=== PATIENT | female | born 1995 | race Caucasian/White ===

== ENCOUNTER → 2016-07-15 | Outpatient (CLI) | payer OTHER ==
--- NOTE | 2016-07-15 14:13 | Diagnostic Imaging Report ---
PROCEDURE: CT abdomen and pelvis without contrast. TECHNIQUE: Multiple contiguous axial images were obtained through the abdomen and pelvis without the use of intravenous contrast. INDICATION: UTI. FINDINGS: The lung bases demonstrate no significant abnormality. The liver, the spleen, the pancreas, the gallbladder, and the adrenal glands appear unremarkable for an unenhanced exam. There is a 2 mm nonobstructive stone in the lower pole of the right kidney. There is no hydronephrosis. There is a 2 mm calcification close to the location of the distal right ureter near the UVJ. Although the exact course of the distal ureter is not well delineated on this exam, this calcification is favored to be a phlebolith. Correlate clinically. If definitive answer by CT scan is needed, then a followup CT scan of the pelvis with intravenous contrast performed 5 minutes after contrast administration can definitively show the distal ureter exact course. There is unremarkable appearance of the adnexa for an unenhanced CT and normal size of the uterus. There is no bowel obstruction. No significant free fluid or fluid collection in the abdomen or pelvis is seen. Beam hardening artifact from an umbilical ring is noted. The osseous structures appear grossly unremarkable. IMPRESSION: 1. A 2 mm nonobstructive stone in the lower pole of the right kidney. No hydronephrosis. 2. A 2 mm calcification is seen in the right side of the pelvis adjacent to the course of the distal right ureter, which is not well delineated on this exam. It is favored to be a phlebolith rather than a distal ureteric stone. Correlate clinically and, if needed, with CT scan of the pelvis with contrast. Dictated by: Dictated on workstation # [id number]
== END ==
LOC: RAD 13:20
PROVIDERS: ATTEND Urology
DX: N39.0 Urinary tract infection, site not specified (principal)
CPT/HCPCS: 74176

== ENCOUNTER → 2016-07-21 | Outpatient (CLI) | payer OTHER ==
--- NOTE | 2016-07-21 15:19 | Diagnostic Imaging Report ---
PROCEDURE: CT abdomen and pelvis with contrast. TECHNIQUE: Multiple contiguous axial images were obtained through the abdomen and pelvis after administration of intravenous contrast. INDICATION: Right ureteric stone. 80 mL of Omnipaque-350 is administered intravenously. COMPARISON: 07/15/2016 exam reviewed. FINDINGS: The visualized portions of the lung bases appear unremarkable. The visualized portions of the liver appear unremarkable. The gallbladder, the pancreas, the spleen, and the adrenals appear grossly unremarkable. There is no hydronephrosis. There is symmetric enhancement in the kidneys and symmetric excretion. There is a 6 mm simple-appearing cyst in the lower pole of the right kidney. There is a 2 mm nonobstructive stone in the lower pole of the right kidney seen. The previously seen 2 mm calcification in the right side of the pelvis which is outside the opacified ureter clearly delineated with contrast. The urinary bladder appears unremarkable. The uterus and adnexa appear grossly unremarkable. No significant free fluid or fluid collection in the abdomen or pelvis seen. The abdominal aorta is normal in caliber. No para-aortic significantly enlarged lymph node seen. The osseous structures appear grossly unremarkable. IMPRESSION: 1. Nonobstructive 2 mm stone in the lower pole of the right kidney seen. 3. The 2 mm calcification seen on the prior exam in the right side of the pelvis is a phlebolith. No ureteric or bladder stone evident. Dictated by: Dictated on workstation # [id number]
== END ==
LOC: RAD 14:25
PROVIDERS: ATTEND Urology
DX: N20.1 Calculus of ureter (principal)
CPT/HCPCS: 74177

== ENCOUNTER → 2021-02-03 | Outpatient (CLI) | payer BC ==
--- NOTE | 2021-02-03 15:45 | Diagnostic Imaging Report ---
INDICATION: survey. Size and dates. TECHNIQUE: Multiple real-time grayscale images were obtained over the gravid uterus. COMPARISON: None FINDINGS: There is a single live intrauterine of 21 weeks 1 day +/- 2 weeks. Cardiac activity and motion are seen. The four-chamber heart and spine are not optimally visualized due to current position otherwise no abnormality is seen. The placenta extends into the lower uterine segment but there is no previa. No adnexal abnormality is seen. Biometrical measurements are as follows: Biparietal 4.80 cm, age 20 weeks 4 days. Head circumference 19.36 cm, age 21 weeks 5 days. Abdominal circumference 16.36 cm, age 21 weeks 3 days. Femur length 3.39 cm, age 20 weeks 5 days. Sonographic estimate age: 21 weeks 1 days. Sonographic estimated date of delivery: 06/15/2021. Estimated Weight: 339 gm (+/- 58 gm). LMP percentile: 91%. heart rate: 135 beats per minute. number: 1 of 1. IMPRESSION: There is a single live intrauterine of 21 weeks 1 day +/- 2 weeks. Dictated by: Dictated on workstation # [id number]
== END ==
LOC: RAD 12:45
PROVIDERS: ATTEND Obstetrics & Gynecology
DX: Z34.02 Encounter for supervision of normal first pregnancy, second trimester (principal); Z3A.21 21 weeks gestation of pregnancy
CPT/HCPCS: 76805

== ENCOUNTER 2021-06-19 19:04 | Inpatient (IN) | payer BC, MEDICAID ==
[~2021-06-19] VITALS: Ht 162.6 cm; Wt 103.1 kg
[2021-06-19] MEDS ORDERED: MINERAL OIL CONCENTRATE 99.9% 15 ML UDC TOP PRN (19:30)
[2021-06-19] MEDS ORDERED: NS IV 1000 ML 1,000 ML IV SCH (19:45)
[2021-06-19] MEDS ORDERED: NS IV 1000 ML 1,000 ML ONE (19:47)
[2021-06-19 20:29] VITALS: BP 127/83
[2021-06-19 20:38] LABS: BASOPHILS % (AUTO) 0 % (0-10); EOSINOPHILS # (AUTO) 0.2 10^3/uL (0.0-0.3); EOSINOPHILS % (AUTO) 2 % (0-10); HEMATOCRIT 36 % (35-52); LYMPHOCYTES # (AUTO) 2.2 10^3/uL (1.0-4.0); LYMPHOCYTES % (AUTO) 24 % (12-44); MEAN CORPUSCULAR HEMOGLOBIN 30 pg (25-34); MEAN CORPUSCULAR HGB CONC 33 g/dL (32-36); MEAN CORPUSCULAR VOLUME 91 fL (80-99); MEAN PLATELET VOLUME 11.5 fL (9.0-12.2); MONOCYTES # (AUTO) 0.6 10^3/uL (0.0-1.0); MONOCYTES % (AUTO) 6 % (0-12); NEUTROPHILS # (AUTO) 6.1 10^3/uL (1.8-7.8); NEUTROPHILS % (AUTO) 67 % (42-75); PLATELET COUNT 239 10^3/uL (130-400); WHITE BLOOD COUNT 9.1 10^3/uL (4.3-11.0)
[2021-06-19] MEDS: D5 LR IV SOLUTION 1,000 ML IV SCH (21:14)
[2021-06-19] MEDS: CATHETER FLUSH 10 ML SYR IV SCH (22:12)
[2021-06-20] VITALS (55 sets, daily range): BP systolic 96–157; BP diastolic 57–91
[2021-06-20] MEDS: D5 LR IV SOLUTION 1,000 ML IV SCH ×2 (03:44→11:58)
[2021-06-20] MEDS: CATHETER FLUSH 10 ML SYR IV SCH (06:31)
[2021-06-20] MEDS ORDERED: OXYTOCIN PRE-MIX DRIP 500 ML IV ONE (08:07)
[2021-06-20] MEDS ORDERED: OXYTOCIN PRE-MIX DRIP 500 ML IV SCH ×2 (08:15→19:45)
[2021-06-20] MEDS ORDERED: HYDROmorphone 2 MG/ML VIAL (DILAUDID) IV NR (11:30)
[2021-06-20] MEDS ORDERED: fentaNYL 2 mcg/ml BUPIVA 0.125 100 ML ONE (12:52)
[2021-06-20] MEDS ORDERED: ONDANSETRON 4 MG/2 ML (SDV) Z0FRAN IV PRN (13:45)
[2021-06-20] MEDS ORDERED: EPIDURAL (fentaNYL 2 MCG/ML BUPIVA 0.125%)100 ML BAG EPI SCH (13:45)
[2021-06-20] MEDS ORDERED: NALOXONE 0.4 MG/ML 1 ML (NARCAN) VIAL IV PRN ×3 (13:45→19:45)
[2021-06-20] MEDS ORDERED: diphenhydrAMINE 50 MG/ML INJ (BENADRYL) IV PRN (13:45)
[2021-06-20] MEDS ORDERED: METOCLOPRAMIDE INJ 10 MG/2 ML (REGLAN) IV PRN (13:45)
[2021-06-20] MEDS ORDERED: LACTATED RINGERS 1,000 ML IV SCH (13:45)
[2021-06-20] MEDS ORDERED: LIDOCAINE/EPI 2% 1:200,00 (XYLOCAINE) 10 ML VIAL ONE (17:11)
--- NOTE | 2021-06-20 17:11 | History & Physical-OB ---
OB - Chief Complaint & HPI Date/Time Date of Admission: Date of Admission: Jun 19, 2021 at 19:04 Date seen by a Provider: Jun 20, 2021 Time Seen by a Provider: 08:15 Chief Complaint/History OB-Reason for Admission/Chief: Induction of Labor Hx : 1 Hx Para: 0 Expected Date of Delivery: Jun 22, 2021 Gestational Age in Weeks: 39 Gestational Age in Days: 5 Indication for induction: maternal discomfort Admission Nurse Assessment Rev: Yes History of Labs O pos Antibody neg RI RPR NR HBsAg NR HIV NR GC neg GBS neg Allergies and Home Medications Allergies Coded Allergies: sulfamethoxazole (Verified Allergy, Mild, 06/19/21) trimethoprim (Verified Allergy, Mild, 06/19/21) hydrocodone (Verified Allergy, Unknown, 06/20/21) lips swell Patient Home Medication List Home Medication List Reviewed: Yes OB - History Hx of Present Care: Yes Ultrasounds: Normal mid trimester US Obstetrical Complications: None Medical Complications: None Patient Past Medical History n/a Immunizations Influenza Vaccine Up-to-Date: Yes; Up-to-Date First/Initial COVID19 Vaccine: Feb 2021 Second COVID19 Vaccination: Mar 2021 OB - Admission Exam Physical Exam Vitals: Vital Signs 06/20/21 06/20/21 06/20/21 03:47 13:30 14:45 Temp 36.4 Pulse 72 Resp 18 B/P (MAP) 117/70 (86) Pulse Ox 98 O2 Delivery Room Air HEENT: NCAT Heart: Rhythm Normal Lungs: Clear Abdomen: Gravid Extremities: Normal Reflexes: Normal Cervical Dilatation: 1cm Effacement: 75% Station: -1 Membranes: Intact Heart Rate: 130's Accelerations: Accelerations Present Decelerations: No Decelerations Short Term Variability: Present Fdc Variability: Average (6-25) Contractions on Admission: 6-10 Minutes Apart Intensity: Mild Luevano Scoring Tool (Modified) Dilation (cm): 1-2cm (1) Effacement (%): 51-79% (2) Descent/Station: -1,0 (2) Cervix Consistency: Soft (2) Cervix Position: Anterior (2) Add 1 point for: Each previous vaginal delivery (1) Luevano Score: 8 Labs Laboratory Tests Test 06/19/21 19:30 Range/Units White Blood Count 9.1 4.3-11.0 10^3/uL Red Blood Count 4.00 3.80-5.11 10^6/uL Hemoglobin 12.0 11.5-16.0 g/dL Hematocrit 36 35-52 % Mean Corpuscular Volume 91 80-99 fL Mean Corpuscular Hemoglobin 30 25-34 pg Mean Corpuscular Hemoglobin Concent 33 32-36 g/dL Red Cell Distribution Width 13.4 10.0-14.5 % Platelet Count 239 130-400 10^3/uL Mean Platelet Volume 11.5 9.0-12.2 fL Immature Granulocyte % (Auto) 1 % Neutrophils (%) (Auto) 67 42-75 % Lymphocytes (%) (Auto) 24 12-44 % Monocytes (%) (Auto) 6 0-12 % Eosinophils (%) (Auto) 2 0-10 % Basophils (%) (Auto) 0 0-10 % Neutrophils # (Auto) 6.1 1.8-7.8 10^3/uL Lymphocytes # (Auto) 2.2 1.0-4.0 10^3/uL Monocytes # (Auto) 0.6 0.0-1.0 10^3/uL Eosinophils # (Auto) 0.2 0.0-0.3 10^3/uL Basophils # (Auto) 0.0 0.0-0.1 10^3/uL Immature Granulocyte # (Auto) 0.1 0.0-0.1 10^3/uL OB - Assessment/Plan/Diagnosis Assessment Assessment: induction of labor Admission Dx 25 yo @ 39.5 Elective IOL GBS neg Admission Status: Inpatient Order (span 2 midnights) Reason for Inpatient Admission: IOL at 39 weeks Plan Plan: Induction Induction Method: per Misoprostol Protocol ANDREI BENTLEY DO Jun 20, 2021 17:11
[2021-06-20] MEDS ORDERED: CITRIC ACID/SOB CIT (BICITRA) 30 ML UDC ONE (19:32)
[2021-06-20] MEDS ORDERED: FAMOTIDINE 20MG/2ML IV (PEPCID) ONE (19:33)
[2021-06-20] MEDS ORDERED: ceFAZolin 2 GM IV Premixed 50 ML ONE (19:36)
--- NOTE | 2021-06-20 19:38 | Progress Note ---
Standard Progress Note Progress Notes/Assess & Plan Date Seen by a Provider: Jun 20, 2021 Time Seen by a Provider: 19:35 Progress/Assessment & Plan Patient admitted last night for IOL. Misoprostol used for cervical ripening. She had AROM performed this morning, and Pitocin augmentation. She received an epidural and progressed to complete and 0 station. She was encouraged to push with no progression in station for 35 min. She was then placed in hand and knees for 45 min, then encouraged to push again at which point significant vulvar swelling was noted, and a large caput had developed. She was unable to progress skull past 0 station. Due to CPD I discussed with the patient proceeding with PLTCS. Risk reviewed, vs continued course of pushing. She agreed that PLTCS would be the better option. Consent was obtain and we now await OR crew to begin. ANDREI BENTLEY DO Jun 20, 2021 19:38
--- NOTE | 2021-06-20 19:41 | Discharge Inst-Women's Service ---
Discharge Inst-Women's Serv Depart Medication/Instructions New, Converted or Re-Newed RX: Transmitted to Pharmacy Final Diagnosis POD 1 PLTCS Problems Reviewed?: Yes Consults/Follow Up Additional Follow Up: Yes Orders/Referrals Dr. Luna in 7-10 days and in 6 weeks Activity Activity: Activity as Tolerated Driving Instructions: No Driving for 1 Week NO SMOKING: NO SMOKING Nothing Inside Vagina: No Douching, No [place], No Tampons Diet Discharge Diet: No Restrictions Symptoms to Report to : Bleeding Excessive, Pain Increased, Fever Over 101 Degrees F, Vaginal Bleeding Increase, Questions/Concerns For Any Problems or Questions: Contact Your Physician Skin/Wound Care Infection Signs and Symptoms: Increased Redness, Foul Odor of Wound, Increased Drainage, Skin Itchy or Has a Rash, Increased Swelling, Temperature Above 101 F Operative Area Clean and Dry: Keep Incision Clean/Dry Stitches/[place]/Dermabond: Dermabond, Care of Stitches Bathing Instructions: ANDREI Kendall DO Jun 20, 2021 19:41
[2021-06-20] MEDS ORDERED: METOCLOPRAMIDE INJ 10 MG/2 ML (REGLAN) IV ONE (19:45)
[2021-06-20] MEDS ORDERED: MEASLES,MUMPS,RUBELLA 1 EA INJ SC SCH (19:45)
[2021-06-20] MEDS ORDERED: TETANUS,DIPTH,PERTUSS P/F (BOOSTRIX) 0.5 ML VIAL IM SCH (19:45)
[2021-06-20] MEDS ORDERED: ONDANSETRON 4 MG/2 ML (SDV) Z0FRAN IVP PRN (19:45)
[2021-06-20] MEDS ORDERED: CATHETER FLUSH 10 ML SYR IV PRN (19:45)
[2021-06-20] MEDS ORDERED: CITRIC ACID/SOB CIT (BICITRA) 30 ML UDC PO ONE (19:45)
[2021-06-20] MEDS ORDERED: ceFAZolin 2 GM IV Premixed 50 ML IV ONE (19:45)
[2021-06-20] MEDS ORDERED: LACTATED RINGERS 1,000 ML IV PRN ×2 (19:45)
[2021-06-20] MEDS ORDERED: BUPIVACAINE 0.25% 30 ML (SENSORCAINE) VIAL ONE (19:49)
[2021-06-20] MEDS ORDERED: ONDANSETRON 4 MG/2 ML (SDV) Z0FRAN ONE (19:49)
[2021-06-20] MEDS ORDERED: fentaNYL INJ 100 MCG/2 ML AMP ONE (19:49)
[2021-06-20] MEDS ORDERED: LIDOCAINE PF 2% 5 ML (XYLOCAINE) VIAL ONE (20:35)
[2021-06-20] MEDS ORDERED: BUPIVACAINE 0.5% 30 ML (SENSORCAINE) VIAL ONE (20:35)
[2021-06-20] MEDS ORDERED: KETOROLAC 30 MG/ML VIAL ONE (20:35)
[2021-06-20] MEDS ORDERED: CATHETER FLUSH 10 ML SYR IV SCH (22:00)
[2021-06-20] MEDS: ACETAMINOPHEN 500 MG TAB (TYLENOL) PO SCH (22:18)
[2021-06-20] MEDS: DOCUSATE SODIUM 100 MG (COLACE) CAP PO SCH (22:18)
--- NOTE | 2021-06-21 00:44 | OPERATIVE REPORT ---
DATE OF SERVICE: PREOPERATIVE DIAGNOSES: 1. A 25-year-old G1, P0 at 39 weeks and 5 days gestation. 2. Cephalopelvic disproportion. POSTOPERATIVE DIAGNOSES: 1. A 25-year-old G1, P0 at 39 weeks and 5 days gestation. 2. Cephalopelvic disproportion. PROCEDURE: Primary low transverse section. SURGEON: Elfego Bentley DO ANESTHESIA: Epidural, which was bolused. ESTIMATED BLOOD LOSS: 500 mL. URINE OUTPUT: 100 mL, slightly blood-tinged at the end of procedure. FLUIDS: 1300 mL lactated Ringer's solution. FINDINGS: A live male weighing 9 pounds even with Apgars of 8 and 9. Grossly normal appearing uterus, bilateral fallopian tubes and ovaries. SPECIMEN SENT: None. INDICATIONS FOR PROCEDURE: This 25-year-old female is a patient who was admitted for induction of labor. Please see her preoperative note for complete details pertaining to her labor course and indications for . All the risks were reviewed with the patient in detail, consent was obtained, the patient was taken to the operating room. OPERATIVE REPORT IN DETAIL: Once in the operating room, epidural analgesia was bolused and found to be adequate. She was placed in supine position with leftward tilt, prepped and draped in normal sterile fashion where a timeout was performed and anesthesia was tested. I then make a Pfannenstiel skin incision with a knife and carried down to the underlying fascia using Bovie cautery. Fascial incision extended laterally using Bovie cautery. Superior aspect of fascial incision was then grasped with Carina clamps, tented up and dissected off the underlying rectus muscle. Inferior aspect of fascial incision was then grasped with Carina clamps, tented up and dissected off the underlying rectus muscles. Rectus muscles are then dissected down the midline using Arellano scissors, which exposed the peritoneum, which I entered bluntly and extended using blunt traction. The Meño ring retractor was then placed in the peritoneal incision, which offers excellent lateral sidewall retraction. I identified the lower uterine segment, which was found to be thinned out and make a low transverse incision to the vesicouterine peritoneum and bluntly dissected off the lower uterine segment, creating a bladder flap and then proceeded with my myotomy until membranes were visualized, at which point I thinned uterine incision laterally and superiorly using bandage scissors. Amniotomy was performed through the incision in the process of doing this. The infant was found in vertex presentation. With gentle fundal pressure, the 's head was elevated up the incision where the head was delivered. The nares and oropharynx are bulb suctioned. A nuchal cord was reduced x1. Anterior and posterior shoulders were delivered. was then brought out to the operative field where the cord was doubly clamped and cut and handed off to waiting nurses in attendance. Cord blood was collected, 3-vessel cord with intact placenta was delivered spontaneously thereafter. IV Pitocin is initiated to facilitate uterine contraction. Uterine fundus confirmed by manual massage. The uterus was then exteriorized and cleared of all endometrial clots and debris. I then proceeded with closing the uterine incision using 0 Vicryl suture in running locked fashion. Second layer of imbricating 0 Monocryl was placed. Excellent hemostasis was noted after doing this. I then placed the uterus back in the pelvis and copiously irrigated the pelvis using normal saline. Once again there was no active bleeding noted from any of my dissection planes. I placed Interceed antiadhesive over my low transverse incision. I then removed the Meño ring retractor and proceeded with closing the peritoneum using 3-0 Vicryl suture in running fashion. Rectus muscle reapproximated using 3-0 Vicryl suture in interrupted fashion. The fascia was reapproximated using 0 Vicryl suture in running fashion. Subcutaneous tissue was reapproximated using 3-0 plain interrupted subcutaneous stitch and skin reapproximated using 4-0 Monocryl in a running subcuticular. Dermabond was applied to incision and sterile dressing with adhesive white tape. The patient tolerated the procedure well and sent to recovery area in stable condition. Lap and sponge counts were correct at the end of the procedure. Instrument counts correct as well. Two grams of Ancef given preoperatively for infection prophylaxis. Job ID: [id number] DocumentID: [id number] Dictated Date: 06/20/2021 20:47:35 Mechanical Assembly Date: 06/21/2021 00:41:27 Dictated By: ELFEGO BENTLEY DO
[2021-06-21] MEDS: METOCLOPRAMIDE 10 MG (REGLAN) TAB PO SCH ×4 (02:02→19:05)
[2021-06-21] MEDS: KETOROLAC 30 MG/ML VIAL IV SCH ×4 (02:02→18:00)
[2021-06-21 04:15] VITALS: BP 119/63
[2021-06-21] MEDS: ACETAMINOPHEN 500 MG TAB (TYLENOL) PO SCH ×2 (04:15→19:05)
[2021-06-21 07:20] VITALS: BP 121/63
[2021-06-21 07:38] LABS: BASOPHILS % (AUTO) 0 % (0-10); EOSINOPHILS % (AUTO) 0 % (0-10); HEMATOCRIT 29 % (35-52); HEMOGLOBIN 9.6 g/dL (11.5-16.0); LYMPHOCYTES # (AUTO) 1.6 10^3/uL (1.0-4.0); LYMPHOCYTES % (AUTO) 9 % (12-44); MEAN CORPUSCULAR HEMOGLOBIN 30 pg (25-34); MEAN CORPUSCULAR HGB CONC 33 g/dL (32-36); MEAN CORPUSCULAR VOLUME 91 fL (80-99); MEAN PLATELET VOLUME 10.7 fL (9.0-12.2); MONOCYTES # (AUTO) 0.9 10^3/uL (0.0-1.0); MONOCYTES % (AUTO) 5 % (0-12); NEUTROPHILS # (AUTO) 14.6 10^3/uL (1.8-7.8); NEUTROPHILS % (AUTO) 84 % (42-75); PLATELET COUNT 174 10^3/uL (130-400); WHITE BLOOD COUNT 17.3 10^3/uL (4.3-11.0)
--- NOTE | 2021-06-21 07:51 | Postpartum Progress Note ---
Note Note Day # 1 Subjective: Patient is without complaints. Ambulating, voiding. Tolerating a regular diet without nausea or vomiting. Normal lochia. Pain is well controlled with oral pain medications. Objective: Physical Exam: General - Alert and oriented, no apparent distress Abdomen - Soft, appropriately tender to palpation, non-distended, fundus firm at umbilicus Extremities - no edema, negative Ross's bilaterally Incision- c/d/i Assessment: POD 1 PLTCS Acute blood loss anemia Plan: Routine care. Encourage breast feeding. Encourage ambulation. Ferrous sulfate supplementation. Plan for discharge tomorrow Vitals - Labs Vital Signs - I&O Vital Signs Date Time Temp Pulse Resp B/P (MAP) Pulse Ox O2 Delivery O2 Flow Rate FiO2 06/21/21 04:15 36.6 99 16 119/63 (81) 97 Room Air 06/20/21 23:40 36.0 91 16 137/71 (93) 99 Room Air 06/20/21 22:25 36.8 88 16 131/79 (96) 98 Room Air 06/20/21 21:35 Room Air 06/20/21 21:35 36.8 16 122/71 (88) 99 Room Air 06/20/21 21:20 36.7 16 129/80 (96) 98 Room Air 06/20/21 21:20 Room Air 06/20/21 21:05 Room Air 06/20/21 21:05 36.6 18 123/73 (90) 98 Room Air 06/20/21 20:50 36.5 20 96/57 (70) 98 Room Air 06/20/21 20:50 Room Air 06/20/21 19:45 106 18 139/74 (95) Room Air 06/20/21 19:30 36.8 106 18 125/69 (87) Room Air 06/20/21 19:15 123 18 130/83 (99) Room Air 06/20/21 19:00 123 18 129/71 (90) 06/20/21 18:45 117 18 145/70 (95) 06/20/21 18:30 37.3 06/20/21 17:45 106 18 157/70 (99) 06/20/21 17:15 100 18 139/90 (106) 06/20/21 17:00 106 18 141/85 (103) 06/20/21 16:45 107 18 136/80 (98) 06/20/21 16:30 84 18 132/82 (99) 06/20/21 16:15 81 18 135/86 (102) 06/20/21 16:00 97 18 118/73 (88) 06/20/21 15:45 89 18 126/79 (95) 06/20/21 15:30 77 18 126/78 (94) 06/20/21 15:15 94 18 119/74 (89) 06/20/21 15:00 36.3 91 18 118/72 (87) 06/20/21 14:45 72 18 117/70 (86) 98 06/20/21 14:30 97 18 115/70 (85) 98 06/20/21 14:15 94 18 105/67 (80) 100 06/20/21 14:10 100 18 101/59 (73) 100 06/20/21 14:00 93 18 118/63 (81) 100 06/20/21 13:55 95 18 131/69 (89) 100 06/20/21 13:45 91 18 133/68 (89) 100 06/20/21 13:42 88 18 126/65 (85) 99 06/20/21 13:40 92 18 123/66 (85) 06/20/21 13:37 84 17 125/67 (86) 99 06/20/21 13:30 36.4 74 18 146/91 (109) 100 06/20/21 13:15 73 18 145/90 (108) 100 06/20/21 13:00 80 18 145/85 (105) 99 06/20/21 12:45 67 18 131/83 (99) 100 06/20/21 12:30 66 18 136/83 (100) 06/20/21 12:15 70 18 129/80 (96) 06/20/21 12:00 70 18 123/71 (88) 06/20/21 11:45 68 18 141/76 (97) 06/20/21 11:30 100 18 141/91 (108) 06/20/21 11:15 70 18 117/64 (81) 06/20/21 11:00 75 18 135/91 (106) 06/20/21 10:45 75 18 135/91 (106) 06/20/21 10:30 67 18 129/86 (100) 06/20/21 10:00 76 18 135/87 (103) 06/20/21 09:45 75 18 134/82 (99) 06/20/21 09:30 71 18 134/85 (101) 06/20/21 09:15 103 18 131/83 (99) 06/20/21 09:00 76 18 134/91 (105) 06/20/21 08:45 82 18 126/90 (102) 06/20/21 08:30 81 18 121/84 (96) 06/20/21 08:22 36.6 79 18 134/84 (101) I & O 06/21/21 07:00 Intake Total 4550 ml Output Total 750 ml Balance 3800 ml Labs Laboratory Tests 06/21/21 07:25: White Blood Count 17.3H, Red Blood Count 3.16L, Hemoglobin 9.6L, Hematocrit 29L, Mean Corpuscular Volume 91, Mean Corpuscular Hemoglobin 30, Mean Corpuscular Hemoglobin Concent 33, Red Cell Distribution Width 13.5, Platelet Count 174, Mean Platelet Volume 10.7, Immature Granulocyte % (Auto) 1, Neutrophils (%) (Auto) 84H, Lymphocytes (%) (Auto) 9L, Monocytes (%) (Auto) 5, Eosinophils (%) (Auto) 0, Basophils (%) (Auto) 0, Neutrophils # (Auto) 14.6H, Lymphocytes # (Auto) 1.6, Monocytes # (Auto) 0.9, Eosinophils # (Auto) 0.0, Basophils # (Auto) 0.0, Immature Granulocyte # (Auto) 0.1 ANDREI BENTLEY DO Jun 21, 2021 07:51
[2021-06-21] MEDS ORDERED: OXC5T PO (08:04)
[2021-06-21] MEDS ORDERED: IBUP-844 PO (08:04)
[2021-06-21] MEDS ORDERED: ACET-93 PO (08:04)
[2021-06-21] MEDS ORDERED: DOCU100C37 PO (08:04)
[2021-06-21] MEDS: DOCUSATE SODIUM 100 MG (COLACE) CAP PO SCH ×2 (08:45→19:38)
[2021-06-21 13:15] VITALS: BP 126/76
[2021-06-21] MEDS ORDERED: IBUPROFEN 600 MG (MOTRIN) TAB PO ONE ×2 (13:15→19:35)
[2021-06-21] MEDS: IBUPROFEN 600 MG (MOTRIN) TAB PO SCH ×2 (13:17→19:39)
[2021-06-21 19:41] VITALS: BP 134/74
[2021-06-22] MEDS: IBUPROFEN 600 MG (MOTRIN) TAB PO SCH ×2 (01:20→07:45)
[2021-06-22] MEDS: METOCLOPRAMIDE 10 MG (REGLAN) TAB PO SCH ×2 (01:20→07:44)
[2021-06-22] MEDS: ACETAMINOPHEN 500 MG TAB (TYLENOL) PO SCH ×3 (01:21→07:45)
[2021-06-22 01:22] VITALS: BP 136/87
[2021-06-22 07:34] VITALS: BP 117/75
[2021-06-22] MEDS: DOCUSATE SODIUM 100 MG (COLACE) CAP PO SCH (07:45)
--- NOTE | 2021-06-22 09:11 | Postpartum Progress Note ---
Note Note Day # 2 Subjective: Patient is without complaints. Ambulating, voiding. Tolerating a regular diet without nausea or vomiting. Normal lochia. Pain is well controlled with oral pain medications. Objective: Physical Exam: General - Alert and oriented, no apparent distress Abdomen - Soft, appropriately tender to palpation, non-distended, fundus firm at umbilicus Extremities - no edema, negative Ross's bilaterally Incision c/d/i Assessment: POD 2 PLTCS Acute blood loss anemia Plan: Routine care. Encourage breast feeding. Encourage ambulation. Ferrous sulfate supplementation. Plan for discharge today Vitals - Labs Vital Signs - I&O Vital Signs Date Time Temp Pulse Resp B/P (MAP) Pulse Ox O2 Delivery O2 Flow Rate FiO2 06/22/21 07:34 36.4 86 16 117/75 (89) 96 06/22/21 01:22 36.3 93 18 136/87 (103) 98 Room Air 06/21/21 19:41 36.6 105 18 134/74 (94) 96 Room Air 06/21/21 13:15 36.3 89 18 126/76 (93) 96 Room Air ANDREI BENTLEY DO Jun 22, 2021 09:11
--- NOTE | 2021-06-22 11:00 | Anesthesia-Regional Post-Op ---
Regional Patient Condition Mental Status: Alert, Oriented x3 Circulation: Same as Pre-Op Headache: Absent Sensation: Full Recovery Motor Block: Absent Post Op Complications Complications None Follow Up Care/Instructions Patient Instructions None needed. Anesthesia/Patient Condition Patient is doing well, no complaints, stable vital signs, no apparent adverse anesthesia problems. No complications reported per nursing. AMRITA ADAN CRNA Jun 22, 2021 11:00
[2021-06-22 11:20] VITALS: BP 117/75
== END 2021-06-22 11:50 | disposition home or self-care (01) | DRG 787 ==
LOC: LDRP 19:04
PROVIDERS: ADMIT Obstetrics & Gynecology; ATTEND Obstetrics & Gynecology
PROC: 3E0DXGC Introduction of Other Therapeutic Substance into Mouth and Pharynx, External Approach (ICD-10-PCS; 2021-06-19)
PROC: 10D00Z1 Extraction of Products of Conception, Low, Open Approach (ICD-10-PCS; principal; 2021-06-20 19:59)
DX: O65.9 Obstructed labor due to maternal pelvic abnormality, unspecified (principal); D62 Acute posthemorrhagic anemia; O69.81X0 Labor and delivery complicated by cord around neck, without compression, not applicable or unspecified; O90.81 Anemia of the puerperium; Z37.0 Single live birth; Z3A.39 39 weeks gestation of pregnancy; Z88.1 Allergy status to other antibiotic agents; Z88.5 Allergy status to narcotic agent; Z88.2 Allergy status to sulfonamides
CPT/HCPCS: 36415; 85025; 86850; 86900; 86901

== ENCOUNTER → 2023-02-08 | Outpatient (CLI) | payer BC, MEDICAID ==
[~2023-02-08] MED LIST: ACET-93 PO; DOCU100C37 PO; IBUP-844 PO; OXC5T PO
--- NOTE | 2023-02-08 13:16 | Diagnostic Imaging Report ---
PROCEDURE: CT urinary tract, rule out kidney stone. TECHNIQUE: Multiple contiguous axial images were obtained through the abdomen and pelvis without the use of intravenous contrast. Auto Exposure Controls were utilized during the CT exam to meet ALARA standards for radiation dose reduction. INDICATION: Urinary tract infection COMPARISON: 07/21/2016 Unenhanced images of liver, gallbladder, pancreas, spleen and adrenal glands are unremarkable. There is persistent punctate calcification lower pole of the right kidney without evidence of obstructive uropathy. The stomach is distended with particulate matter. There is no evidence of free fluid in the abdomen or pelvis. No organized fluid collection is seen. Unopacified bladder is unremarkable and there is no evidence of appendiceal inflammation. IMPRESSION: Nonobstructing punctate stone in lower pole of the right kidney without hydronephrosis or other acute abnormality within the abdomen or pelvis. Dictated by: Dictated on workstation # [id number]
== END ==
LOC: RAD 12:43
PROVIDERS: ATTEND Nurse Practitioner Family
DX: N20.0 Calculus of kidney (principal); N39.0 Urinary tract infection, site not specified
CPT/HCPCS: 74176